=== PATIENT | female | born 1960 | race Caucasian/White ===

== ENCOUNTER → 2016-10-03 | Outpatient (CLI) | payer BC | LOC: MW.CHFP 11:32 | PROVIDERS: ATTEND Family Medicine | DX: R79.9 Abnormal finding of blood chemistry, unspecified (principal) | CPT/HCPCS: 36415; 84165; 86787 ==

== ENCOUNTER → 2016-10-16 | Outpatient (CLI) | payer BC ==
--- NOTE | 2016-10-16 11:28 | NM ---
EXAMINATION: Nuclear medicine myocardial perfusion study with exercise stress test. HISTORY: Tobacco use. PROCEDURE: Patient exercised according to Juanjose protocol for 4 minutes and 31 seconds and achieved maximal hear t rate of 152 beats per minute. Adequate exercise. Following intravenous administration of 10 and 31.8 mCi of technetium 99m sestamibi, stress and re st SPECT images including gating imaging was performed. FINDINGS: Stress and rest myocardial SPECT images demonstrates fixed mildly to moderately decreased perfusion along the anterior wall. There is likely a degree of breast attenuation artifact. Review of gated images demonstrates normal wall motion, contractility and wall thickening. The left ventricular ejection fraction is 71 %. The left ventricular chamber size is normal. TID 1.11. IMPRESSION: 1. No evidence of myocardial ischemia. 2. Normal ventricular chamber size and function with ejection fraction of 71 %.
--- NOTE | 2016-10-16 20:01 | PCM.PRNOTE ---
- Free Text/Narrative Note: I Cardiolite exercise stress test Resting blood pressure 130/72, pulse 72 Patient exercised per Juanjose protocol 4 minutes and 31 seconds and achieved a maximum heart rate of 152 beats per minute which was 93% of age-predicted maximum heart rate. Mets: 7.0 double product 24284 Resting EKG revealed normal sinus rhythm. With exertion, no significant ST-T changes were noted. Test stopped at target heart rate. No complaints of chest pain during exercise or recovery. Impression: #1`. Negative stress test for acute ischemic ST-T changes #2. Poor exercise tolerance. # 3. Cardiolite portion of test pending
== END ==
LOC: MW.NM 06:25
PROVIDERS: ATTEND Family Medicine
DX: Z72.0 Tobacco use (principal); E66.9 Obesity, unspecified; D68.9 Coagulation defect, unspecified
CPT/HCPCS: 78452; 93017; A9500

== ENCOUNTER → 2016-10-24 | Outpatient (CLI) | payer BC ==
--- NOTE | 2016-10-25 10:56 | MY ---
EXAMINATION: Bilateral digital mammography utilizing CAD. HISTORY: Screening exam. Comparison is made to previous studies dated 02/14/2016, 02/09/2015. FINDINGS: Bilateral scattered fibroglandular densities. No suspicious calcifications, masses or a rchitectural distortions. No pathologic appearing lymph nodes, no abnormal skin thickening or nipp le inversion. CAD highlighted regions appear normal at this time. IMPRESSION: BI-RADS category I - negative mammogram. Continued screening according to ACR-ACS gu idelines suggested. THE FALSE-NEGATIVE RATE OF MAMMOGRAM IS APPROXIMATELY 10%. MANAGEMENT OF A PALPABLE ABNORMALITY MUST BE BASED UPON CLINICAL GROUNDS. SENSITIVITY FOR DETECTION OF ABNORMALITIES IN DENSE BREASTS IS LOW. NOTE: A letter will be sent to the patient regarding findings. [facility] -- STANISLAW Pinedo [phone] - FAX [phone]
== END ==
LOC: MW.MAM 13:56
PROVIDERS: ATTEND Obstetrics & Gynecology
DX: Z12.31 Encounter for screening mammogram for malignant neoplasm of breast (principal)
CPT/HCPCS: G0202; G0202-26

== ENCOUNTER → 2016-11-05 | Outpatient (CLI) | payer BC ==
[2016-11-05 15:53] LABS: CHLORIDE,CL 107 mmol/L (98-110); SODIUM,NA 141 mmol/L (136-146)
== END ==
LOC: MW.CHRC 14:39
PROVIDERS: ATTEND Family Medicine
DX: K57.92 Diverticulitis of intestine, part unspecified, without perforation or abscess without bleeding (principal)
CPT/HCPCS: 36415; 80053; 85025; 85610

== ENCOUNTER 2016-11-29 11:19 | Day surgery (SDC) | payer BC ==
[~2016-11-29 11:19] MED LIST: Lactated Ringers 1,000 ML IV SCH; Sodium Chloride 0.9% 10 ML Syringe FLUSH PRN; Sodium Chloride 0.9% 2.5 ML Syringe FLUSH PRN
--- NOTE | 2016-11-29 11:49 | PCM.PREANE ---
Preanesthetic Assessment - Anesthesia/Transfusion/Family Hx Anesthesia History: Prior Anesthesia Without Reaction Other Type of Anesthesia Reaction Comment: Denies any known problems Family History of Anesthesia Reaction: No Transfusion History: No Prior Transfusion(s) Intubation History: Unknown - Review of Systems General: No Symptoms Pulmonary: No Symptoms Cardiovascular: No Symptoms Gastrointestinal: Hematochezia Neurological: No Symptoms Other: Reports: None - Physical Assessment O2 Sat by Pulse Oximetry: 100 Respiratory Rate: 16 Vital Signs: Last Vital Signs Temp 36.6 C 11/29/16 11:32 Pulse 57 L 11/29/16 11:32 Resp 16 11/29/16 11:32 BP 183/93 H 11/29/16 11:32 Pulse Ox 100 11/29/16 11:32 Height: 1.65 m Weight: 128.367 kg ASA Class: 2 Mental Status: Alert & Oriented x3 Airway Class: Mallampati = 2 Dentition: Reports: Normal Dentition Thyro-Mental Finger Breadths: 2 Mouth Opening Finger Breadths: 3 ROM/Head Extension: Full Lungs: Clear to auscultation, Normal respiratory effort Cardiovascular: Regular Rate, Regular Rhythm - Allergies Allergies/Adverse Reactions: Allergies Allergy/AdvReac Type Severity Reaction Status Date / Time micropore tape Allergy Blisters Uncoded 11/27/16 13:22 - Blood Blood Available: No - Anesthesia Plan Pre-Op Medication Ordered: None - Acknowledgements Anesthesia Type Planned: MAC Pt an Appropriate Candidate for the Planned Anesthesia: Yes Alternatives and Risks of Anesthesia Discussed w Pt/Guardian: Yes Pt/Guardian Understands and Agrees with Anesthesia Plan: Yes PreAnesthesia Questionnaire HEENT History: Reports: Allergic Rhinitis Other HEENT History: has upper permanent dental bridge Cardiovascular History: Reports: Blood Clots/VTE/DVT (left leg - anticoagulated) , Other (See Below) (borderline cholesterol) Respiratory History: Reports: Sleep Apnea Other Respiratory History: uses CPAP Gastrointestinal History: Reports: Diverticulosis, Other (See Below) (h/o splenic abscess) Genitourinary History: Reports: None UNDERWRITING ASSISTANT History: Reports: None Musculoskeletal History: Reports: Fracture Other Musculoskeletal History: HX of fx left arm, fingers and toes Neurological History: Reports: Concussion Psychiatric History: Reports: None Endocrine/Metabolic History: Reports: Hypothyroidism, Obesity/BMI 30+ (BMI 47.1) Hematologic History: Reports: Anticoagulation Therapy Other Hematologic History: usually takes Zarelto because of hx of multiple blood clots in left leg Immunologic History: Reports: None Oncologic (Cancer) History: Reports: None Dermatologic History: Reports: Venous Stasis Dermatitis - Past Surgical History Head Surgeries/Procedures: Reports: None HEENT Surgical History: Reports: LASIK Cardiovascular Surgical History: Reports: None Respiratory Surgical History: Reports: None GI Surgical History: Reports: Bariatric Procedure, Colonoscopy (5 years ago) Other GI Surgeries/Procedures: had Gastric Lap Band surgery, developed multiple abscesses and had it removed Female Surgical History: Reports: None Neurological Surgical History: Reports: None Musculoskeletal Surgical History: Reports: Arthroscopic Knee Oncologic Surgical History: Reports: None - SUBSTANCE USE Smoking Status *Q: Former Smoker (quit 06/01) Tobacco Use Within Last Twelve Months: Cigarettes Days Per Week of Alcohol Use: 0 Number of Drinks Per Day: 0 Total Drinks Per Week: 0 Recreational Drug Use History: No - HOME MEDS Home Medications: Home Meds Biotin 1 mg PO ASDIRECTED 05/07/14 [History] Levothyroxine Sodium 88 mcg PO ACBRK 05/07/14 [History] Multivitamin [Multi-Vitamin Daily] 1 tab PO DAILY 05/07/14 [History] Aloe Vera [Aloe Vera] 500 mg PO DAILY 11/27/16 [History] Cholecalciferol (Vitamin D3) [Vitamin D3] 1,000 unit PO DAILY 11/27/16 [History] Lactobacillus Combination No.8 [Adult Probiotic] 1 cap PO DAILY 11/27/16 [ History] Melatonin [Melatonin] 1 mg PO BEDTIME PRN 11/27/16 [History] - CURRENT (IN HOUSE) MEDS Current Meds: Current Medications Lactated Ringer's (Ringers, Lactated) 1,000 mls @ 125 mls/hr IV ASDIRECTED MIRI Last Admin: 11/29/16 11:34 Dose: 125 mls/hr Sodium Chloride (Saline Flush) 10 ml FLUSH ASDIRECTED PRN PRN Reason: Keep Vein Open Sodium Chloride (Saline Flush) 2.5 ml FLUSH ASDIRECTED PRN PRN Reason: Keep Vein Open
[2016-11-29] MEDS ORDERED: Propofol 200 MG/20 ML SDV ONE ×2 (11:52→12:45)
[2016-11-29] MEDS ORDERED: Midazolam 1 MG/ML 2 ML SDV ONE (11:52)
[2016-11-29] MEDS ORDERED: Lidocaine 2% 5 ML SDV ONE (11:52)
[2016-11-29] MEDS ORDERED: fentaNYL 100 MCG/2 ML SDV ONE (11:52)
--- NOTE | 2016-11-29 13:18 | PCM.POSTAN ---
POST ANESTHESIA ASSESSMENT - MENTAL STATUS Mental Status: alert, oriented - RESPIRATORY Respiratory Status: respiratory rate WNL, airway patent, O2 saturation stable - CARDIOVASCULAR CV Status: pulse rate WNL, blood pressure stable - GASTROINTESTINAL GI Status: no symptoms - PAIN Pain Score: 0 - POST OP HYDRATION Hydration Status: adequate & stable
[2016-11-29 13:27] VITALS: BP 145/65
--- NOTE | 2016-11-29 13:48 | PCM48HPAN ---
Post Anesthesia Note - EVALUATION WITHIN 48HRS OF ANESTHETIC Vital Signs in Normal Range: Yes Patient Participated in Evaluation: Yes Respiratory Function Stable: Yes Airway Patent: Yes Cardiovascular Function Stable: Yes Hydration Status Stable: Yes Pain Control Satisfactory: Yes Nausea and Vomiting Control Satisfactory: Yes Mental Status Recovered: Yes
--- NOTE | 2016-11-30 02:29 | OR ---
SURGEON: MICHAEL LANIER MD DATE OF PROCEDURE: 11/29/2016 PREOPERATIVE DIAGNOSIS: Hematochezia. POSTOPERATIVE DIAGNOSIS: Extensive diverticulosis. Rectal polyp PROCEDURE PERFORMED: Diagnostic colonoscopy. ANESTHESIA: MAC. EXTENT OF EXAM: To the cecum. INSTRUMENT USED: Olympus colonoscope. PREPARATION: Fair. LIMITATIONS: None. INDICATIONS FOR EXAMINATION: The patient is a 56-year-old female, who presents with hematochezia. The decision was made to go to the operating room to perform a diagnostic colonoscopy. I explained the procedure as well as expected perioperative course and risks including bleeding, infection, or damage to surrounding structures including perforation. The patient verbalized understanding and wishes to proceed. PROCEDURE IN DETAIL: The patient was brought to the endoscopy suite and placed in left lateral decubitus position. A time-out was completed verifying the patient's name, age, date of , allergies, and procedure to be performed. Monitored anesthesia care was induced and continuous oxygen was provided via nasal cannula throughout the procedure. After adequate sedation was achieved, digital rectal exam was performed. This examination was within normal limits. A well lubricated colonoscope was then inserted in the rectum and advanced under direct visualization to the level of cecum. The cecum was identified by both visual and anatomic landmarks. Photograph was taken of the cecal cap. I was unable to retroflex the scope due to significant looping more proximally. The scope was then fully withdrawn while examining the color, texture, anatomy, and integrity of the mucosa from the cecum to the anal canal. The prep was poor and there was some solid stool within the colon making visualization of all the fine details of the mucosal lining difficult. However, the patient was found to have extensive diverticulosis throughout the colon. There was a rectal polyp that was remvoed via cold biopsy forceps. No large polyps or obstructing lesions were noted. The scope was brought into the rectum and retroflexed to allow visualization of the anal canal opening. This appeared normal and a photograph was taken. The scope was straightened out and removed from the patient. Cecum to anus time was 13 minutes. The patient was transferred to recovery room in stable condition. ENDOSCOPIC DIAGNOSIS: Extensive diverticulosis. Rectal polyp RECOMMENDATIONS: Follow up in the clinic in 2 weeks. ANGY MAE /[id number] AIDA
== END 2016-11-29 13:32 | disposition home or self-care (01) ==
LOC: MW.SDS 11:19
PROVIDERS: ATTEND Surgery
PROC: 0DBP8ZZ Excision of Rectum, Via Natural or Artificial Opening Endoscopic (ICD-10-PCS; principal; 2016-11-29)
DX: D12.8 Benign neoplasm of rectum (principal); K57.30 Diverticulosis of large intestine without perforation or abscess without bleeding; E78.00 Pure hypercholesterolemia, unspecified; E03.9 Hypothyroidism, unspecified; E66.9 Obesity, unspecified; G47.30 Sleep apnea, unspecified; I87.2 Venous insufficiency (chronic) (peripheral); M10.9 Gout, unspecified; Z86.718 Personal history of other venous thrombosis and embolism; Z86.2 Personal history of diseases of the blood and blood-forming organs and certain disorders involving the immune mechanism; Z87.891 Personal history of nicotine dependence; Z91.048 Other nonmedicinal substance allergy status; Z79.899 Other long term (current) drug therapy; Z98.84 Bariatric surgery status; Z98.890 Other specified postprocedural states; Z68.42 Body mass index [BMI] 45.0-49.9, adult; Z99.89 Dependence on other enabling machines and devices
CPT/HCPCS: 45380; 88305; J2250; J3010; J7120; J2704

== ENCOUNTER 2021-10-05 08:45 | Day surgery (SDC) | payer BC ==
[~2021-10-05 08:45] MED LIST changes: +Propofol 200 MG/20 ML SDV ONE; +Sodium Chloride 0.9% 20 ML SDV IV PRN; +fentaNYL 100 MCG/2 ML SDV ONE
[2021-10-05] MEDS ORDERED: Ketamine HCL/NACL, ISO-OSM 50 MG/5 ML Syringe ONE (10:10)
[2021-10-05 13:31] VITALS: BP 137/73; PULSE 71
== END 2021-10-05 12:00 | disposition home or self-care (01) ==
LOC: MW.SDS 08:45
PROVIDERS: ATTEND Surgery
DX: K50.00 Crohn's disease of small intestine without complications (principal); K52.9 Noninfective gastroenteritis and colitis, unspecified; K57.30 Diverticulosis of large intestine without perforation or abscess without bleeding; I10 Essential (primary) hypertension; E03.9 Hypothyroidism, unspecified; E78.00 Pure hypercholesterolemia, unspecified; N39.0 Urinary tract infection, site not specified; G47.30 Sleep apnea, unspecified; E66.9 Obesity, unspecified; Z68.43 Body mass index [BMI] 50.0-59.9, adult; Z98.890 Other specified postprocedural states; Z91.013 Allergy to seafood; Z79.01 Long term (current) use of anticoagulants; Z79.899 Other long term (current) drug therapy; Z79.890 Hormone replacement therapy; Z77.22 Contact with and (suspected) exposure to environmental tobacco smoke (acute) (chronic); Z86.718 Personal history of other venous thrombosis and embolism; Z87.891 Personal history of nicotine dependence; Z87.19 Personal history of other diseases of the digestive system
CPT/HCPCS: 45380; J2704; J3010; J7120; 00811

== ENCOUNTER 2023-12-05 06:33 | Day surgery (SDC) | payer BC ==
[~2023-12-05 06:33] MED LIST changes: -Lactated Ringers 1,000 ML IV SCH; -Propofol 200 MG/20 ML SDV ONE; -fentaNYL 100 MCG/2 ML SDV ONE
[2023-12-05] MEDS ORDERED: Lidocaine 1% 20 ML MDV ONE (07:12)
[2023-12-05] MEDS ORDERED: Bupivacaine 0.5% 30 ML SDV ONE (07:12)
[2023-12-05] MEDS: Lactated Ringers 1,000 ML IV SCH (07:15)
[2023-12-05 10:40] VITALS: BP 144/67; PULSE 70
[2023-12-05] MEDS ORDERED: Piperacillin/Tazobactam 4.5 GM in Sodium Chloride 0.9% 100 ML IV ONE (11:47)
== END 2023-12-05 08:55 | disposition home or self-care (01) ==
LOC: MW.SDS 06:33
PROVIDERS: ATTEND Surgery
DX: D18.01 Hemangioma of skin and subcutaneous tissue (principal); D23.72 Other benign neoplasm of skin of left lower limb, including hip; I10 Essential (primary) hypertension; E03.9 Hypothyroidism, unspecified; E78.00 Pure hypercholesterolemia, unspecified; E66.9 Obesity, unspecified; Z79.890 Hormone replacement therapy; Z79.899 Other long term (current) drug therapy; Z91.013 Allergy to seafood
CPT/HCPCS: 11200; 11403; 82947; J0665; J7120; J3490

== ENCOUNTER 2024-10-15 11:19 | Day surgery (SDC) | payer MEDICARE, BC ==
[2024-10-15] MEDS ORDERED: Lidocaine 1% with EPINEPHrine 1:100,000 10 ML MDV ONE (11:36)
[2024-10-15] MEDS ORDERED: Bupivacaine 0.5% 10 ML SDV ONE (11:42)
[2024-10-15 13:44] VITALS: BP 144/65; PULSE 95
== END 2024-10-15 13:35 | disposition home or self-care (01) ==
LOC: MW.SDS 11:19
PROVIDERS: ATTEND Surgery
DX: L90.5 Scar conditions and fibrosis of skin (principal); L92.3 Foreign body granuloma of the skin and subcutaneous tissue; I10 Essential (primary) hypertension; E03.9 Hypothyroidism, unspecified; E78.00 Pure hypercholesterolemia, unspecified; Z91.013 Allergy to seafood; Z91.09 Other allergy status, other than to drugs and biological substances; Z79.899 Other long term (current) drug therapy; Z79.890 Hormone replacement therapy
CPT/HCPCS: 11403; 12032; 87070; 87075; 87077; 87186; 87205; 88304; J0665